=== PATIENT | male | born 1985 | race African-American/Black ===

== ENCOUNTER 2019-10-24 23:09 | Emergency (ER) | payer SELFPAY ==
[~2019-10-24] VITALS: Ht 180.3 cm; Wt 79.4 kg
[2019-10-24 23:20] VITALS: BP 112/73
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
[2019-10-24] MEDS ORDERED: IBUPROFEN600 MG ORAL (23:31)
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
[2019-10-24 23:55] VITALS: BP 114/85
--- NOTE | 2019-10-24 23:55 | NUR ---
ER DISCHARGE NOTE: Patient is cleared to be discharged per ERMD, pt is aox4, on room air, with stable vital signs. pt was given dc and prescription instructions, pt was able to verbalize understanding, pt id band removed. pt is able to ambulate with steady gait. pt took all belongings.
[2019-10-25] MEDS ORDERED: Lidocaine 1% MPF 10mg/ml 5ml INJ ONE (01:00)
[2019-10-25] MEDS ORDERED: Azithromycin 250mg tab ORAL ONE (01:00)
--- NOTE | 2019-10-25 01:00 | NUR ---
ED Nurse Note: Pt treated for possible STD due to significant other's symptoms and pt concerns. Pt called back into ED after DC at 2355. Azithromycin and rocephin given as ordered by ERMD. Pt cleared for DC per ERMD. No acute distress noted. VSS. Aaox4. Pt took all belongings and verbalized understanding of DC instructions to follow up with PCP.
== END 2019-10-24 23:55 | disposition home or self-care (01) ==
LOC: EMR 23:50
DX: S16.1XXA Strain of muscle, fascia and tendon at neck level, initial encounter (principal); N34.2 Other urethritis; V43.62XA Car passenger injured in collision with other type car in traffic accident, initial encounter; Y92.411 Interstate highway as the place of occurrence of the external cause
CPT/HCPCS: 96372; 96374; 99284